=== PATIENT | male | born 1965 | race Caucasian/White ===

== ENCOUNTER 2016-04-06 01:39 | Emergency (ER) | payer OTHER ==
[~2016-04-06] VITALS: Ht 177.8 cm; Wt 95.3 kg
--- NOTE | 2016-04-06 03:12 | ED GENERAL ADULT ---
History of Present Illness General Chief Complaint: Allergy Symptoms Stated Complaint: ?ALLERGIC REACTION,SWOLLEN ANKLES Source: patient, family, old records Exam Limitations: no limitations Vital Signs & Intake/Output Vital Signs & Intake/Output Vital Signs Date Time Temp Pulse Resp B/P Pulse O2 O2 Flow FiO2 Ox Delivery Rate 04/06 0340 97.2 65 16 145/97 99 Room Air 04/06 0205 99 Room Air 04/06 0155 97.7 69 16 157/99 99 Room Air Allergies Coded Allergies: shrimp (Severe, RESPIRATORY AND RASH 09/22/15) lactose (Intermediate, SNIFFLES AND GI UPSET 09/22/15) Penicillins (UNKNOWN 09/22/15) valsartan (From [facility]) (SEVERE NERVE PAIN 09/22/15) Triage Note: 50YO MALE TO TRIAGE W/CO ?REACTION TO AMLODIPINE. STATES HE "HAS BEEN TAKING MED SINCE FEBRUARY ONCE A DAY, LAST WEEK HE WAS INCREASED TO 2 A DAY. CO SWOLLEN ANKLES, ITCHY,BURNING THIGHS Triage Nurses Notes Reviewed? yes Onset: Just prior to arrival Duration: hour(s):, constant, changing over time, continues in ED, getting worse Timing: recent history Injury Environment: home Severity: moderate No Modifying Factors: none Associated Symptoms: chest pain HPI: Several weeks prior to admission patient was treated with 10 days of Zithromax for bronchitis. Patient recently had increasing amlodipine to twice daily dosage. Several hours prior to admission he noted increased swelling to both ankles itching in upper legs and awoke with chest tightness nausea shortness of breath. He has a history of GERD and ate spicy spaghetti. He denies fever chills nausea vomiting diarrhea abdominal pain headache dysuria rash bleeding. Past History Travel History Traveled to [place] past 21 day No Medical History Any Pertinent Medical History? see below for history Neurological: NONE EENT: NONE Cardiovascular: hypertension Respiratory: NONE Gastrointestinal: GERD Hepatic: NONE Renal: NONE Musculoskeletal: gout Psychiatric: NONE Endocrine: NONE Blood Disorders: NONE Cancer(s): NONE [employer]/Reproductive: NONE Surgical History Surgical History: none Psychosocial History What is your primary language Turkish Tobacco Use: Never used Family History Hx Contributory? No Review of Systems Review of Systems Constitutional: Reports: no symptoms. EENTM: Reports: no symptoms. Respiratory: Reports: see HPI, short of breath. Cardiovascular: Reports: see HPI, chest pain. GI: Reports: see HPI. Genitourinary: Reports: no symptoms. Musculoskeletal: Reports: no symptoms. Skin: Reports: no symptoms. Neurological/Psychological: Reports: no symptoms. Hematologic/Endocrine: Reports: no symptoms. Immunologic/Allergic: Reports: no symptoms. All Other Systems: Reviewed and Negative Physical Exam Physical Exam General Appearance: well developed/nourished, alert, awake, anxious, mild distress Head: atraumatic, normal appearance Eyes: Bilateral: normal appearance, PERRL, EOMI. Ears, Nose, Throat: normal pharynx, normal ENT inspection Neck: normal inspection, supple, full range of motion, no midline tenderness Respiratory: normal breath sounds, chest non-tender, no respiratory distress, quiet respiration, lungs clear Cardiovascular: regular rate/rhythm, normal peripheral pulses, norml femoral pulses equa Peripheral Pulses: 4+ carotid (R), 4+ carotid (L) Gastrointestinal: normal bowel sounds, soft, non-tender, no organomegaly Back: normal inspection, normal range of motion Extremities: normal inspection, normal capillary refill, normal range of motion, pedal edema, no ligament instability Neurologic/Psych: no motor/sensory deficits, awake, alert, oriented x 3, normal gait, normal mood/affect, 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 Skin: intact, normal color, warm/dry Lymphatic: no anterior cervical odin Core Measures ACS in differential dx? No CVA/TIA Diagnosis: No Severe Sepsis Present: No Septic Shock Present: No Progress Differential Diagnoses I considered the following diagnoses in my evaluation of the patient: Adverse medication reaction GERD and hiatal hernia Plan of Care: Orders Procedure Date/time Status EKG 04/06 0142 Active Diagnostic Imaging: Viewed by Me: Radiology Read. Discussed w/RAD: Radiology Read. CXR Impression: no acute abnormality, no infiltrates, normal size heart, normal mediastinum Initial ED EKG: normal axis, normal intervals, normal p-waves, normal QRS complex, normal sinus rhythm, no ST T wave changes Departure Departure Time of Disposition: 323 Disposition: HOME OR SELF CARE Condition: Stable Clinical Impression Primary Impression: Medication reaction Secondary Impressions: Hiatal hernia with GERD Referrals: DAVEY ALANIS,JESUS ALBERTO Montalvo (PCP/Family) Additional Instructions: Stop amlodipine and call your doctor for an alternative blood pressure medication Departure Forms: Customer Survey General Discharge Information Critical Care Note Critical Care Note Critical Care Time: non-applicable
--- NOTE | 2016-04-06 03:12 | RADIOLOGY REPORT ---
EXAMINATION: CHEST 2 VIEWS CLINICAL INFORMATION: Chest pain. COMPARISON: None. TECHNIQUE: PA and lateral views of the chest were obtained. FINDINGS: The cardiac silhouette is not enlarged. The mediastinal and hilar contours are unremarkable. There are neither pleural effusions nor pneumothoraces. There are no consolidations. There is a hiatal hernia present. The osseous structures are unremarkable. IMPRESSION: No evidence for acute disease. Hiatal hernia.
[2016-04-06 03:40] VITALS: BP 145/97
== END 2016-04-06 03:42 ==
LOC: ERH 01:39
DX: T46.5X5A Adverse effect of other antihypertensive drugs, initial encounter (principal); R07.89 Other chest pain; K44.9 Diaphragmatic hernia without obstruction or gangrene; K21.9 Gastro-esophageal reflux disease without esophagitis
CPT/HCPCS: 93005; 93010